=== PATIENT | female | born 1945 | race Caucasian/White ===

== ENCOUNTER → 2017-03-12 | Day surgery (SDC) | payer MEDICARE ==
[~2017-03-12] VITALS: Ht 149.9 cm; Wt 86.0 kg
[~2017-03-12] MED LIST: ACETAMINOPHEN 1000 MG/100 ML 100 ML IV SCH; ASPI81TA23 PO; ATEN25TA PO; ATOR80TA45 PO; BUPIVACAINE/EPINEPHRINE 0.5% 50 ML VIAL ONE; CHLORHEXIDINE GLUCONATE 2 % 1 PACK (2 CLOTHS) TOPICAL PRN; CLOB0.055 TOPICAL; CLOB0.059 TOPICAL; DEXAMETHASONE SOD PHOS 4 MG/ML VIAL IV ONE; DO NOT ADM ANY ANTICOAGULANT DRUGS PRN; FURO20TA PO; GLIM2TAB PO; GLYCOPYRROLATE 1 MG/5 ML SYRINGE IV PUSH ONE; HYDR25TA5 PO; INSULIN HUMAN REGULAR 1,000 UNITS/10 ML VIAL SQ PRN; KETOROLAC TROMETHAMINE 30 MG/ML (IVP) VIAL IV PUSH ONE; KETOROLAC TROMETHAMINE 30 MG/ML (IVP) VIAL ONE; KRIL300C3 PO; LABETALOL HCL 100 MG/20 ML VIAL IV ONE; LACTATED RINGER'S 1000 ML INJ 1,000 ML IV ONE; LACTATED RINGER'S 1000 ML IV PRN; LATA0.002 EACH EYE; LEVO50TA4 PO; LIDOCAINE HCL 1% PF 5 ML SYRINGE OTHER ONE; LISI-519 PO; METF500T PO; METOPROLOL TARTRATE 25 MG TAB PO PRN; MIDAZOLAM HCL 2 MG/2 ML VIAL IV ONE; MORPHINE SULFATE 4 MG/ML INJ IV PUSH PRN; MULT1TAB61 PO; NEOSTIGMINE 3 MG/3 ML SYR IV ONE; OMEP20TA93 PO; ONDANSETRON HCL 4 MG/2 ML VIAL IV PUSH ONE; ONDANSETRON HCL 4 MG/2 ML VIAL IV PUSH PRN; PHENYLEPH/NS 1000 MCG/10 ML SYR IV ONE; POTA-163 PO; POTA10TA2 PO; POVIDONE IODINE 5% (ANTISEPSIS KIT) 4 APPLICATIONS EACH NARE PRN; PROPOFOL 200 MG/20 ML AMP IV ONE; ROCURONIUM INJ 50 MG/5 ML SYRINGE IV PUSH ONE; SODIUM CHLORID 0.9% 500 ML IV PRN; TIMO0.5S30 EACH EYE; ceFAZolin 2 GM PREMIX 50 ML IV SCH; oxyCODONE/ACETAMINOPHEN 5 MG/325 MG TAB PO PRN
--- NOTE | 2017-03-12 12:18 | PD.OP ---
cc: Jose Hernandez MD; Luis Rooney MD Operative Report Date of Surgery: Mar 12, 2017 Preoperative Diagnosis: Chronic cholecystitis and cholelithiasis Postoperative Diagnosis: Chronic cholecystitis and cholelithiasis Procedure: Laparoscopic cholecystectomy Anesthesia: General endotracheal Surgeon: Jose Hernandez Exploitation Analyst(s): Kalyn Gasca CFA Operation and Findings: Operative findings: The patient was found to have a chronically diseased- appearing gallbladder which was minimally thickened. There was a stone within its lumen. The cystic duct and common bile duct were seen to be of normal caliber. There were a few adhesions along her previous lower midline incision, but no other abnormalities were noted. Operative procedure: The patient brought to the operating room and after satisfactory general endotracheal anesthesia obtained, the abdomen was prepped and draped in usual sterile fashion. 0.5% Marcaine with epinephrine was used to infiltrate the skin for local anesthesia. Small incision was made several centimeters below the xiphoid process and a 5 mm trocar was inserted into the peritoneal cavity under direct visualization. The abdomen was then distended to 15 mmHg using carbon dioxide and the camera reinserted and visceral injury inspected for, with none being identified. Under direct visualization a 5 port was placed above the adhesions in the midline at the level of the umbilicus or just above it, and a 12 mm trocar was inserted in the midline above the previous 5 mm port. The gallbladder was identified easily and the fundus grasped retracted superiorly over the right lobe of the liver. Nelson's pouch was then grasped and retracted inferiorly and laterally, placing tension on the hepatoduodenal ligament. The cystic duct cystic artery were both dissected free with blunt dissection to obtain the critical view. Once the critical view had been obtained the cystic artery was divided near its junction with the gallbladder using the harmonic scalpel. The cystic duct was then divided near its juncture with the gallbladder with the Harmonic scalpel as well. The gallbladder was then dissected free from the liver bed using the Harmonic. It was placed within an Endo Catch bag and brought through the upper midline incision where it was emptied of its bile and withdrawn without problem. There was a really large stone within the lumen which was sent as permanent pathology along with the gallbladder. The liver bed was inspected and found to be hemostatic. The cystic duct and cystic artery stumps were carefully inspected and found to be intact with no leakage of bile or blood. The carbon dioxide was then vented as completely as possible the atmosphere after inspecting the peritoneal cavity once again and seeing no other abnormalities. The skin was then closed with interrupted 4-0 Monocryl subcuticular stitches. Steri-Strips were applied and the patient was then awakened and taken from the operating room, in satisfactory condition, having tolerated the procedure problem. Estimated blood loss was less than 15 mL's. The instrument, sponge, and needle counts were reported as being correct 2 at the end of procedure. Jose Hernandez MD Mar 12, 2017 12:18
[2017-03-12 14:41] VITALS: BP 110/44; PULSE 71; RESP 18; O2SAT 95
== END | disposition home or self-care (01) ==
LOC: HSDC 10:04
PROVIDERS: ATTEND Surgery
DX: K80.10 Calculus of gallbladder with chronic cholecystitis without obstruction (principal)
CPT/HCPCS: 00790; 47562; 88304; J0131; J0690; J1100; J1885; J2250; J2370; J2405; J2710; J3010; J7120